=== PATIENT | female | born 1940 | race Caucasian/White ===

== ENCOUNTER 2024-09-13 10:13 | Outpatient (CLI) | payer MEDICARE, OTHER ==
[~2024-09-13] VITALS: Ht 148.6 cm; Wt 60.3 kg
[2024-09-13 10:50] LABS: TOTAL HEMOGLOBIN 13.3 G/dl (12.0-16.0)
[2024-09-13] MEDS: albuterol 2.5 MG/3 ML nebule NEB ONE (11:27)
[2024-09-13 11:36] VITALS: PULSE 68; RESP 16; O2SAT 96
[2024-09-13 11:48] VITALS: PULSE 64; RESP 16
== END 2024-09-13 23:59 | disposition home or self-care (01) ==
LOC: RT 10:13
PROVIDERS: ATTEND Internal Medicine Pulmonary Disease
DX: J45.998 Other asthma (principal)
CPT/HCPCS: 85018; 94060; 94727; 94729; 94760